=== PATIENT | female | born 1980 | race Caucasian/White ===

== ENCOUNTER 2017-05-10 15:52 | Emergency (ER) | payer MEDICAID ==
[~2017-05-10] VITALS: Ht 167.6 cm; Wt 60.0 kg
[2017-05-10] MEDS ORDERED: OLANZAPINE 5MG TABLET PO SCH (16:15)
[2017-05-10 20:25] VITALS: BP 109/62
== END 2017-05-10 20:25 | disposition home or self-care (01) ==
LOC: ER 16:06
DX: F99 Mental disorder, not otherwise specified (principal); R44.0 Auditory hallucinations; F15.10 Other stimulant abuse, uncomplicated
CPT/HCPCS: 99284